=== PATIENT | female | born 2005 | race Caucasian/White ===

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

== ENCOUNTER 2024-10-02 18:55 | Emergency (ER) | payer OTHER ==
[~2024-10-02] VITALS: Ht 162.6 cm; Wt 80.6 kg
[2024-10-02 18:59] VITALS: TEMP 97.9
[2024-10-02] MEDS ORDERED: ESCITALOPRAM PO (19:26)
[2024-10-02] MEDS ORDERED: METH20CA14 PO (19:26)
[2024-10-02] MEDS ORDERED: ISOVUE-370 76% 100ML VIAL As Ordered ONE (19:53)
[2024-10-02] MEDS: NS (Normal Saline) 0.9% 1,000 ML IV ONE (19:58)
[2024-10-02 20:07] LABS: BASO % 0.2 % (0.0-1.0); EOS # 0.1 10^3/uL (0.0-0.5); EOS % 0.6 % (0.0-3.0); HEMATOCRIT 41.5 % (36.0-47.0); HEMOGLOBIN 13.9 g/dl (12.0-15.5); LYMPH % 19.9 % (24.0-44.0); MEAN CORPUSCULAR HEMOGLOBIN 28.2 pg (27.0-33.0); MEAN CORPUSCULAR HGB CONC 33.5 g/dl (32.0-36.5); MEAN CORPUSCULAR VOLUME 84.2 fl (80.0-96.0); MONO # 0.6 10^3/uL (0.0-0.8); MONO % 3.8 % (2.0-8.0); NEUTROPHILS # 11.3 10^3/uL (1.5-8.5); NEUTROPHILS % 75.1 % (36.0-66.0); PLATELET COUNT, AUTOMATED 335 10^3/uL (150-450); RED BLOOD COUNT 4.93 10^6/uL (4.00-5.40); WHITE BLOOD COUNT 15.1 10^3/uL (4.0-10.0)
[2024-10-02 20:25] LABS: HCG, SERUM QUALITATIVE NEGATIVE (NEGATIVE)
[2024-10-02 20:26] LABS: BLOOD UREA NITROGEN 10 MG/DL (9-23); C REACTIVE PROTEIN QUANTITATIV 1.84 MG/DL (<1.0); CALCIUM LEVEL 9.5 MG/DL (8.5-10.1); CARBON DIOXIDE LEVEL 22 MMOL/L (20-31); CHLORIDE LEVEL 106 MMOL/L (98-107); CREATININE FOR GFR 0.52 MG/DL (0.55-1.30); GLOMERULAR FILTRATION RATE > 90.0 (>60); GLUCOSE, FASTING 90 MG/DL (60-100); POTASSIUM SERUM 3.9 MMOL/L (3.5-5.1); SODIUM LEVEL 141 MMOL/L (136-145)
[2024-10-02 21:00] VITALS: BP 125/77
[2024-10-02 21:25] VITALS: O2SAT 98
[2024-10-02] MEDS ORDERED: MEDR4PAK PO (22:16)
[2024-10-02] MEDS ORDERED: AMOX875T2 PO (22:16)
[2024-10-02] MEDS: dexAMETHasone 20MG/5ML VIAL IV ONE (22:40)
[2024-10-02] MEDS: AMPICILLIN SOD/SULBACTAM SOD 3 GM in DEXTROSE 5% (D5W) MINI-BAG PLU 100 ML IV ONE (22:42)
[2024-10-02] MEDS: AUGMENTIN 875 MG TAB PO ONE (23:31)
== END 2024-10-02 23:39 | disposition home or self-care (01) ==
LOC: M ED 18:55
DX: J36 Peritonsillar abscess (principal); F90.9 Attention-deficit hyperactivity disorder, unspecified type
CPT/HCPCS: 70491; 80047; 80048; 84703; 85025; 86140; 96361; 96365; 96375; 99284; J0295; J1100; Q9967